=== PATIENT | female | born 1975 | race American Indian/Alaskan Native ===

== ENCOUNTER 2016-12-09 08:30 | Outpatient (CLI) | payer MEDICAID ==
--- NOTE | 2016-12-09 09:03 | Ultrasound Report ---
Right breast ultrasound: History: Chronic nonbloody discharge from the right nipple. On breast imaging demonstrates 3 well-defined anechoic nodules in the 36 and 9:00 locations all measuring under 1 cm. The findings are not otherwise remarkable. Specifically, there is no ductal dilatation or intraductal lesion identified. Impression: 3 benign cysts. Recommendation: Clinical followup. BI-RADS CATEGORY: 2 = Benign ACR BI-RADS MAMMOGRAPHIC CODES: 0 = Needs additional imaging evaluation; 1 = Negative; 2 = Benign; 3 = Probably benign; 4 = Suspicious; 5 = Malignant; 6 = Known biopsy-proven malignancy COMMENT: 1. Dense breast tissue, i.e., adenosis, fibrocystic changes, etc., may obscure an underlying neoplasm. 2. Approximately 10% of cancers are not detected with mammography. 3. A negative mammography report should not delay biopsy if a clinically suspicious mass is present.
== END 2016-12-09 08:31 | disposition home or self-care (01) ==
LOC: SPVWC 08:30
PROVIDERS: ATTEND Surgery
DX: N64.52 Nipple discharge (principal)

== ENCOUNTER 2017-05-28 16:57 | Emergency (ER) | payer MEDICAID ==
[2017-05-28 17:50] LABS: Basophils % (Auto) 0.6 % (0.0-1.8); Eosinophils % (Auto) 1.5 % (0.0-4.3); Hematocrit 43.6 % (30.3-42.9); Hemoglobin 14.1 gm/dl (10.1-14.3); Mean Corpuscular HGB Conc 32 % (30-34); Mean Corpuscular Hemoglobin 26 pg (28-32); Mean Corpuscular Volume 81 fl (79-97); Platelet Count 292 K/mm3 (140-440); Red Blood Count 5.36 M/mm3 (3.65-5.03); Red Cell Distribution Width 15.1 % (13.2-15.2); White Blood Count 8.5 K/mm3 (4.5-11.0)
[2017-05-28 17:52] LABS: Anion Gap 18 mmol/L; BUN/Creatinine Ratio 14.28; Blood Urea Nitrogen 10 mg/dL (7-17); Calcium 9.2 mg/dL (8.4-10.2); Carbon Dioxide 23 mmol/L (22-30); Chloride 96.1 mmol/L (98-107); Glucose 412 mg/dL (65-100); Potassium 4.3 mmol/L (3.6-5.0); Sodium 133 mmol/L (137-145)
[2017-05-28 18:15] LABS: Bilirubin,Urine NEG (Negative); Blood,Urine NEG (Negative); Ketones,Urine TR mg/dL (Negative); Leukocyte Esterase,Urine NEG (Negative); Mucus,Urine FEW /HPF; Nitrite,Urine NEG (Negative); Protein,Urine <15 mg/dL mg/dL (Negative); Urobilinogen,Urine < 2.0 mg/dL (<2.0); WBC,Urine < 1.0 /HPF (0.0-6.0)
[2017-05-28 21:36] VITALS: BP 160/78
--- NOTE | 2017-05-29 10:44 | ED Elopement Review ---
ED Pt Elopement review - Results review Lab results: Laboratory Tests 05/28/17 05/28/17 05/28/17 17:08 17:27 17:27 WBC 8.5 RBC 5.36 H Hgb 14.1 Hct 43.6 H MCV 81 MCH 26 L MCHC 32 RDW 15.1 Plt Count 292 Lymph % (Auto) 37.7 H [place] % (Auto) 7.8 H Eos % (Auto) 1.5 Baso % (Auto) 0.6 Lymph # 3.2 [place] # 0.7 Eos # 0.1 Baso # 0.0 Seg Neutrophils % 52.4 Seg Neutrophils # 4.4 VBG pH Sodium 133 L Potassium 4.3 Chloride 96.1 L Carbon Dioxide 23 Anion Gap 18 BUN 10 Creatinine 0.7 Estimated GFR > 60 BUN/Creatinine Ratio 14.28 Glucose 412 H POC Glucose 402 H Calcium 9.2 HCG, Qual Urine Color Urine Turbidity Urine pH Ur Specific [place] Urine Protein Urine Glucose (UA) Urine Ketones Urine Blood Urine Nitrite Urine Bilirubin Urine Urobilinogen Ur Leukocyte Esterase Urine WBC (Auto) Urine RBC (Auto) U Epithel Cells (Auto) Urine Mucus 05/28/17 05/28/17 05/28/17 17:27 17:27 17:44 WBC RBC Hgb Hct MCV MCH MCHC RDW Plt Count Lymph % (Auto) [place] % (Auto) Eos % (Auto) Baso % (Auto) Lymph # [place] # Eos # Baso # Seg Neutrophils % Seg Neutrophils # VBG pH 7.349 Sodium Potassium Chloride Carbon Dioxide Anion Gap BUN Creatinine Estimated GFR BUN/Creatinine Ratio Glucose POC Glucose Calcium HCG, Qual Negative Urine Color Straw Urine Turbidity Clear Urine pH 6.0 Ur Specific [place] 1.035 H Urine Protein <15 mg/dl Urine Glucose (UA) >=500 Urine Ketones Tr Urine Blood Neg Urine Nitrite Neg Urine Bilirubin Neg Urine Urobilinogen < 2.0 Ur Leukocyte Esterase Neg Urine WBC (Auto) < 1.0 Urine RBC (Auto) 2.0 U Epithel Cells (Auto) 2.0 Urine Mucus Few 05/28/17 21:24 WBC RBC Hgb Hct MCV MCH MCHC RDW Plt Count Lymph % (Auto) [place] % (Auto) Eos % (Auto) Baso % (Auto) Lymph # [place] # Eos # Baso # Seg Neutrophils % Seg Neutrophils # VBG pH Sodium Potassium Chloride Carbon Dioxide Anion Gap BUN Creatinine Estimated GFR BUN/Creatinine Ratio Glucose POC Glucose 293 H Calcium HCG, Qual Urine Color Urine Turbidity Urine pH Ur Specific [place] Urine Protein Urine Glucose (UA) Urine Ketones Urine Blood Urine Nitrite Urine Bilirubin Urine Urobilinogen Ur Leukocyte Esterase Urine WBC (Auto) Urine RBC (Auto) U Epithel Cells (Auto) Urine Mucus - Call Back decision Pt Call Back Decision: Pt to F/U with PMD (multiple medical issues)
== END 2017-05-28 21:46 | disposition left against medical advice (07) ==
LOC: ED 16:57
DX: J02.9 Acute pharyngitis, unspecified (principal); M79.1 Myalgia; E11.65 Type 2 diabetes mellitus with hyperglycemia; M19.90 Unspecified osteoarthritis, unspecified site; J45.909 Unspecified asthma, uncomplicated; K21.9 Gastro-esophageal reflux disease without esophagitis; I10 Essential (primary) hypertension; F32.9 Major depressive disorder, single episode, unspecified; F17.200 Nicotine dependence, unspecified, uncomplicated; Z88.6 Allergy status to analgesic agent; Z88.8 Allergy status to other drugs, medicaments and biological substances; Z88.5 Allergy status to narcotic agent; Z53.21 Procedure and treatment not carried out due to patient leaving prior to being seen by health care provider
CPT/HCPCS: 36415; 80048; 81001; 82805; 82962; 84703; 85025; 87116; 87430

== ENCOUNTER 2017-07-22 00:21 | Emergency (ER) | payer MEDICAID ==
[2017-07-22 02:54] LABS: Anion Gap 20 mmol/L; BUN/Creatinine Ratio 18.33; Basophils % (Auto) 0.3 % (0.0-1.8); Blood Urea Nitrogen 11 mg/dL (7-17); Calcium 9.5 mg/dL (8.4-10.2); Carbon Dioxide 24 mmol/L (22-30); Chloride 95.9 mmol/L (98-107); Eosinophils % (Auto) 1.4 % (0.0-4.3); Glucose 292 mg/dL (65-100); Hematocrit 40.1 % (30.3-42.9); Hemoglobin 13.5 gm/dl (10.1-14.3); Mean Corpuscular HGB Conc 34 % (30-34); Mean Corpuscular Hemoglobin 27 pg (28-32); Mean Corpuscular Volume 80 fl (79-97); Platelet Count 302 K/mm3 (140-440); Potassium 4.2 mmol/L (3.6-5.0); Red Blood Count 5.04 M/mm3 (3.65-5.03); Red Cell Distribution Width 14.6 % (13.2-15.2); Sodium 136 mmol/L (137-145); White Blood Count 7.8 K/mm3 (4.5-11.0)
[2017-07-22] MEDS ORDERED: CLEOCIN 600 MG/50 mL 600 MG/50 ML BAG IV ONE (06:49)
[2017-07-22] MEDS ORDERED: DILAUDID IV ONE ×2 (06:49→11:38)
[2017-07-22] MEDS ORDERED: ZOFRAN IV ONE (06:49)
[2017-07-22] MEDS ORDERED: NACL 0.9% 1000 ML 1,000 ML IV ONE (06:51)
--- NOTE | 2017-07-22 07:09 | Emergency Department Report ---
ED Chest Pain HPI - General Chief Complaint: Chest Pain Stated Complaint: CHEST/LEG PAIN Time Seen by Provider: 07/22/17 06:18 Source: patient Mode of arrival: Ambulatory Limitations: No Limitations - History of Present Illness Initial Comments: 41-year-old female with past medical history of arthritis, diabetes, asthma, GERD, hypertension, elevated cholesterol, and depression presents to the hospital complaining of chest pain and abscess. The patient has had intermittent right upper chest pain 3 days. Pain is sharp, intermittent, moderate in intensity. Worse with deep inspiration and movement but not palpation. Positive associated increased dyspnea on exertion. Denies nausea, vomiting, diaphoresis, calf tenderness, edema, recent travel, history of PE/ DVT. Patient quit smoking 2 weeks ago. No previous history of stress te or drug use. Patient also complains of boil 1 week. Gradually increasing in size to the back of the left medial thigh. Positive redness. No drainage Severity scale (0 -10): 7 - Related Data Home Medications Medication Instructions Recorded Confirmed Last Taken Ergocalciferol [Vitamin D2] 1 cap PO QWEEK 07/22/17 07/22/17 Unknown Hydroxyzine HCl 25 mg PO Q8H PRN 07/22/17 07/22/17 Unknown Insulin Glargine [Lantus] 60 units SQ QHS 07/22/17 07/22/17 Unknown Insulin Lispro [HumaLOG VIAL] 40 units SQ AC 07/22/17 07/22/17 Unknown Losartan [Cozaar] 100 mg PO QDAY 07/22/17 07/22/17 Unknown Pregabalin [Lyrica] 75 mg PO BID 07/22/17 07/22/17 Unknown amLODIPine [Norvasc] 5 mg PO DAILY 07/22/17 07/22/17 Unknown Previous Rx's Medication Instructions Recorded Last Taken Type HYDROcodone/APAP 5-325 [[place] 1 each PO Q4HR PRN #20 tablet 07/22/17 Unknown Rx 5/325] Sulfamethoxazole/Trimethoprim 1 each PO BID #20 tablet 07/22/17 Unknown Rx [Bactrim DS TAB] Allergies Allergy/AdvReac Type Severity Reaction Status Date / Time No Known Allergies Allergy Verified 07/22/17 07:48 Heart Score - HEART Score History: Slightly suspicious EKG: Non-specific Age: < 45 Risk factors: > 3 risk factors or hx of atherosclerotic disease Troponin: < normal limit HEART Score: 3 ED Review of Systems ROS: Stated complaint: CHEST/LEG PAIN Other details as noted in HPI Comment: All other systems reviewed and negative Other: Constitutional: No fevers chills Eyes: No eye pain visual changes ENT: No ear pain or throat pain Neck: Denies pain Respiratory: Denies cough wheezing Cardiovascular: Denies palpitations, syncope GI: Denies abdominal pain, nausea, vomiting, diarrhea : Denies dysuria, urinary frequency, or urgency Musculoskeletal: Denies back pain Skin: As per HPI Neurologic: Denies headache, numbness, weakness Psychiatric: Denies suicidal ideation, hallucinations ED Past Medical Hx - Past Medical History Hx Hypertension: Yes Hx Diabetes: Yes Hx GERD: Yes Hx Arthritis: Yes Hx Kidney Stones: Yes Hx Psychiatric Treatment: Yes (DEPRESSION) Hx Asthma: Yes Additional medical history: HIGH CHOLESTEROL - Surgical History Past Surgical History?: No - Social History Smoking Status: Never Smoker Substance Use Type: None - Medications Home Medications: Home Medications Medication Instructions Recorded Confirmed Last Taken Type Ergocalciferol [Vitamin D2] 1 cap PO QWEEK 07/22/17 07/22/17 Unknown History HYDROcodone/APAP 5-325 [[place] 1 each PO Q4HR PRN #20 tablet 07/22/17 Unknown Rx 5/325] Hydroxyzine HCl 25 mg PO Q8H PRN 07/22/17 07/22/17 Unknown History Insulin Glargine [Lantus] 60 units SQ QHS 07/22/17 07/22/17 Unknown History Insulin Lispro [HumaLOG VIAL] 40 units SQ AC 07/22/17 07/22/17 Unknown History Losartan [Cozaar] 100 mg PO QDAY 07/22/17 07/22/17 Unknown History Pregabalin [Lyrica] 75 mg PO BID 07/22/17 07/22/17 Unknown History Sulfamethoxazole/Trimethoprim 1 each PO BID #20 tablet 07/22/17 Unknown Rx [Bactrim DS TAB] amLODIPine [Norvasc] 5 mg PO DAILY 07/22/17 07/22/17 Unknown History ED Physical Exam - General Limitations: No Limitations - Other Other exam information: General: No limitations, patient is alert in no acute distress Head exam: Atraumatic, normocephalic Eyes exam: Normal appearance ENT: Moist mucous membrane, normal oropharynx Neck exam: Normal inspection, full range of motion, no meningismus nontender Respiratory exam: Clear to auscultation bilateral, no wheezes, rales, crackles. Chest: Nontender Cardiovascular: Normal rate and rhythm, normal heart sounds Abdomen: Soft, nondistended, and nontender, with normal bowel sounds, no rebound, or guarding Extremity: Full range of motion normal inspection no deformity Back: Normal Inspection, full range of motion, no tenderness Neurologic: Alert, oriented x3, cranial nerves intact, no motor or sensory deficit Psychiatric: normal affect, normal mood Skin: Left and a thigh large abscess with warmth, erythema, and fluctuance ED Course Vital Signs 07/22/17 07/22/17 07/22/17 01:49 04:47 06:13 Temperature 97.6 F 98.6 F Pulse Rate 82 80 76 Respiratory 18 11 L Rate Blood Pressure 169/100 166/116 Blood Pressure [Left] O2 Sat by Pulse 98 98 98 Oximetry 07/22/17 07/22/17 07/22/17 06:15 06:30 06:45 Temperature Pulse Rate 90 79 76 Respiratory 16 19 22 Rate Blood Pressure 148/84 139/76 139/76 Blood Pressure 148/84 [Left] O2 Sat by Pulse 98 100 98 Oximetry 07/22/17 07/22/17 07/22/17 07:00 07:15 07:30 Temperature Pulse Rate 78 83 79 Respiratory 19 11 L 17 Rate Blood Pressure 144/72 158/88 166/79 Blood Pressure [Left] O2 Sat by Pulse 97 97 96 Oximetry 07/22/17 07/22/17 07/22/17 07:45 08:00 08:15 Temperature 98.5 F Pulse Rate 88 78 Respiratory 26 H 19 14 Rate Blood Pressure 166/79 183/78 183/78 Blood Pressure [Left] O2 Sat by Pulse 97 95 97 Oximetry 07/22/17 07/22/17 07/22/17 08:31 08:45 09:00 Temperature Pulse Rate Respiratory 18 16 Rate Blood Pressure 183/78 183/78 150/79 Blood Pressure [Left] O2 Sat by Pulse 97 95 96 Oximetry 07/22/17 07/22/17 07/22/17 09:15 10:20 10:52 Temperature 97.9 F Pulse Rate 79 Respiratory 16 18 18 Rate Blood Pressure 183/78 Blood Pressure 137/76 [Left] O2 Sat by Pulse 100 Oximetry - I & D Right Thigh Type of Procedure: Simple Blade Size: 11 I & D Procedure: betadine prep, sterile drapes applied, sterile dressing applied , gauze wick placed AUTUMN score - Autumn Score Age > 65: (0) No Aspirin use within the Past 7 Days: (0) No 3 or more CAD Risk Factors: (1) Yes 2 or more Angina events in past 24 hrs: (0) No Known CAD with more than 50% Stenosis: (0) No Elevated Cardiac Markers: (0) No ST Deviation Greater than 0.5mm: (0) No AUTUMN Score: 1 ED Medical Decision Making - Lab Data Result diagrams: 07/22/17 02:01 07/22/17 02:01 Lab Results 07/22/17 07/22/17 07/22/17 Range/Units 02:01 02:01 04:52 WBC 7.8 (4.5-11.0) K/mm3 RBC 5.04 H (3.65-5.03) M/mm3 Hgb 13.5 (10.1-14.3) gm/dl Hct 40.1 (30.3-42.9) % MCV 80 (79-97) fl MCH 27 L (28-32) pg MCHC 34 (30-34) % RDW 14.6 (13.2-15.2) % Plt Count 302 (140-440) K/mm3 Lymph % (Auto) 49.9 H (13.4-35.0) % [place] % (Auto) 8.2 H (0.0-7.3) % Eos % (Auto) 1.4 (0.0-4.3) % Baso % (Auto) 0.3 (0.0-1.8) % Lymph # 3.9 (1.2-5.4) K/mm3 [place] # 0.6 (0.0-0.8) K/mm3 Eos # 0.1 (0.0-0.4) K/mm3 Baso # 0.0 (0.0-0.1) K/mm3 Seg Neutrophils % 40.2 (40.0-70.0) % Seg Neutrophils # 3.1 (1.8-7.7) K/mm3 D-Dimer (0-234) ng/mlDDU Sodium 136 L (137-145) mmol/L Potassium 4.2 (3.6-5.0) mmol/L Chloride 95.9 L (98-107) mmol/L Carbon Dioxide 24 (22-30) mmol/L Anion Gap 20 mmol/L BUN 11 (7-17) mg/dL Creatinine 0.6 L (0.7-1.2) mg/dL Estimated GFR > 60 ml/min BUN/Creatinine Ratio 18.33 % Glucose 292 H (65-100) mg/dL POC Glucose (70-105) Calcium 9.5 (8.4-10.2) mg/dL Troponin T < 0.010 < 0.010 (0.00-0.029) ng/mL HCG, Qual (Negative) 07/22/17 07/22/17 07/22/17 Range/Units 07:18 07:18 07:18 WBC (4.5-11.0) K/mm3 RBC (3.65-5.03) M/mm3 Hgb (10.1-14.3) gm/dl Hct (30.3-42.9) % MCV (79-97) fl MCH (28-32) pg MCHC (30-34) % RDW (13.2-15.2) % Plt Count (140-440) K/mm3 Lymph % (Auto) (13.4-35.0) % [place] % (Auto) (0.0-7.3) % Eos % (Auto) (0.0-4.3) % Baso % (Auto) (0.0-1.8) % Lymph # (1.2-5.4) K/mm3 [place] # (0.0-0.8) K/mm3 Eos # (0.0-0.4) K/mm3 Baso # (0.0-0.1) K/mm3 Seg Neutrophils % (40.0-70.0) % Seg Neutrophils # (1.8-7.7) K/mm3 D-Dimer 205.02 (0-234) ng/mlDDU Sodium (137-145) mmol/L Potassium (3.6-5.0) mmol/L Chloride (98-107) mmol/L Carbon Dioxide (22-30) mmol/L Anion Gap mmol/L BUN (7-17) mg/dL Creatinine (0.7-1.2) mg/dL Estimated GFR ml/min BUN/Creatinine Ratio % Glucose (65-100) mg/dL POC Glucose (70-105) Calcium (8.4-10.2) mg/dL Troponin T < 0.010 (0.00-0.029) ng/mL HCG, Qual Negative (Negative) 07/22/17 07/22/17 Range/Units 07:52 11:27 WBC (4.5-11.0) K/mm3 RBC (3.65-5.03) M/mm3 Hgb (10.1-14.3) gm/dl Hct (30.3-42.9) % MCV (79-97) fl MCH (28-32) pg MCHC (30-34) % RDW (13.2-15.2) % Plt Count (140-440) K/mm3 Lymph % (Auto) (13.4-35.0) % [place] % (Auto) (0.0-7.3) % Eos % (Auto) (0.0-4.3) % Baso % (Auto) (0.0-1.8) % Lymph # (1.2-5.4) K/mm3 [place] # (0.0-0.8) K/mm3 Eos # (0.0-0.4) K/mm3 Baso # (0.0-0.1) K/mm3 Seg Neutrophils % (40.0-70.0) % Seg Neutrophils # (1.8-7.7) K/mm3 D-Dimer (0-234) ng/mlDDU Sodium (137-145) mmol/L Potassium (3.6-5.0) mmol/L Chloride (98-107) mmol/L Carbon Dioxide (22-30) mmol/L Anion Gap mmol/L BUN (7-17) mg/dL Creatinine (0.7-1.2) mg/dL Estimated GFR ml/min BUN/Creatinine Ratio % Glucose (65-100) mg/dL POC Glucose 307 H 262 H (70-105) Calcium (8.4-10.2) mg/dL Troponin T (0.00-0.029) ng/mL HCG, Qual (Negative) - EKG Data -: EKG Interpreted by Me (sinus rate [address] elevation [place]) - EKG Data 07/22/17 07:11 Repeat EKG:sinus rate 73 LVH and nonspecific T-wave abnormality - Radiology Data Radiology results: report reviewed (cxr: naf), image reviewed - Medical Decision Making Plan discharge patient home with pain medication and antibiotics for MRSA. This patient is a typical unremarkable EKG, cardiac enzymes 3, chest x-ray, and d-dimer. Follow-up will be encouraged - Differential Diagnosis atypical chest pain, PE, pleurisy, costochondritis, abscess, [place] Critical Care Time: No Critical care attestation.: If time is entered above; I have spent that time in minutes in the direct care of this critically ill patient, excluding procedure time. ED Disposition Clinical Impression: Atypical chest pain, Diabetes, Abscess of left thigh Disposition: TO HOME OR SELFCARE Is pt being admited?: No Does the pt Need Aspirin: No Condition: Stable Instructions: Chest Pain (ED), Diabetes Mellitus Type 2 in Adults (ED), Abscess (ED) Additional Instructions: Take the medication as prescribed. Please note urinary infection may cause her glucose to be more elevated than normal. Please continue to monitor and treat her glucose level closely. Please return if symptoms worsen as indicated by her discharge instructions. It is very important that your are reevaluated within 2 days for packing removal and abscess reevaluation. You may go to your primary care doctor or return here to the emergency department Prescriptions: HYDROcodone/APAP 5-325 [[place] 5/325] 1 each PO Q4HR PRN #20 tablet PRN Reason: Pain Sulfamethoxazole/Trimethoprim [Bactrim DS TAB] 1 each PO BID #20 tablet Referrals: AARTI SERVIN MD [Primary Care Provider] - 2-3 Days Time of Disposition: 11:46
[2017-07-22] MEDS ORDERED: XYLOCAINE 1% 20 mL ONE (07:48)
--- NOTE | 2017-07-22 08:41 | XRay Report ---
FINAL REPORT EXAM: XR CHEST 1V AP HISTORY: Chest pain TECHNIQUE: AP portable view(s) of the chest obtained. PRIORS: None. FINDINGS: No mediastinal shift. Cardiac silhouette is not enlarged. No pneumothorax, effusion, or focal pulmonary opacity identified. No acute skeletal findings. IMPRESSION: No acute pulmonary finding identified.
[2017-07-22] MEDS ORDERED: XYLOCAINE 1%/ EPI 1:100,000 INFILTRATI ONE (09:06)
[2017-07-22] MEDS ORDERED: XYLOCAINE 1%/ EPI 1:100,000 INFILTRATI NR (10:00)
[2017-07-22 13:29] VITALS: BP 165/78
== END 2017-07-22 13:25 | disposition home or self-care (01) ==
LOC: ED 00:21
DX: R07.89 Other chest pain (principal); L02.416 Cutaneous abscess of left lower limb; I10 Essential (primary) hypertension; E11.9 Type 2 diabetes mellitus without complications; M19.90 Unspecified osteoarthritis, unspecified site; F32.9 Major depressive disorder, single episode, unspecified; J45.909 Unspecified asthma, uncomplicated; E78.00 Pure hypercholesterolemia, unspecified; Z79.4 Long term (current) use of insulin
CPT/HCPCS: 10060; 36415; 71010; 80048; 82962; 84484; 84703; 85025; 85379; 87116; 93005; 93010; 96365; 96375; 96376; 99285; J1170; J2405; J7030; 87076; 87186; J1815

== ENCOUNTER 2017-07-24 15:10 | Emergency (ER) | payer MEDICAID ==
[2017-07-24 15:17] VITALS: BP 181/104
--- NOTE | 2017-07-24 15:17 | Emergency Department Report ---
Stated Complaint: PACKING REMOVED Time Seen by Provider: 07/24/17 15:14 - HPI History of Present Illness: PT states she is here for recheck. PT states she was seen on Monday and had abscess drained. PT states some of the dressing fell off. PT rates her pain - ROS Review of Systems: - fever - chills - Exam Physical Exam: obese female no acute distress upper thigh not visualized in triage MSE screening note: Focused history and physical exam performed. Due to findings the following was ordered: room for exam ED Disposition for MSE Condition: Stable
--- NOTE | 2017-07-24 18:47 | Emergency Department Report ---
Entered by MINISTERIO LUJAN, acting as scribe for ALISA LEON NP. ED Recheck HPI - General Chief Complaint: Laceration/Recheck/Suture Stated Complaint: PACKING REMOVED Time Seen by Provider: 07/24/17 15:14 Source: patient Mode of arrival: Ambulatory Limitations: No Limitations - History of Present Illness Initial Comments: This is a 41 y/o female, nontoxic, well nourished in appearance, no acute signs of distress with a PMHx of asthma, IDDM, GERD, HTN, renal stones, depression, and high cholesterol presents with an abscess recheck that began 2 days ago. Patient was seen in this ED on 07/22/2017 to have an abscess incised and drained. Rates pain a 7/10 in severity, which she describes as aching in quality. Aggravated with palpation and alleviated with nothing. Denies increase in pain, drainage, fever, chills, chest pain, SOB, [place] or dizziness, numbness, and tingling. Notes compliancy to prescribed antibiotics, Bactrim. NKDA. OLIVA Complaint: wound re-check Onset/Timin -: days(s) Initial Visit For: abscess Returns Today for: wound recheck Symptoms Since Prior Visit: no new symptoms Context: planned re-check Associated Symptoms: none. denies: fever, chills, chest pain, shortness of breath, rash, malaise, [place], abdominal pain Treatments Prior to Arrival: dressings, Given Antibiotics on (Bactrim), Given Pain Meds on ([place]) - Related Data Home Medications Medication Instructions Recorded Confirmed Last Taken Ergocalciferol [Vitamin D2] 1 cap PO QWEEK 07/22/17 07/22/17 Unknown Hydroxyzine HCl 25 mg PO Q8H PRN 07/22/17 07/22/17 Unknown Insulin Glargine [Lantus] 60 units SQ QHS 07/22/17 07/22/17 Unknown Insulin Lispro [HumaLOG VIAL] 40 units SQ AC 07/22/17 07/22/17 Unknown Losartan [Cozaar] 100 mg PO QDAY 07/22/17 07/22/17 Unknown Pregabalin [Lyrica] 75 mg PO BID 07/22/17 07/22/17 Unknown amLODIPine [Norvasc] 5 mg PO DAILY 07/22/17 07/22/17 Unknown Previous Rx's Medication Instructions Recorded Last Taken Type HYDROcodone/APAP 5-325 [[place] 1 each PO Q4HR PRN #20 tablet 07/22/17 Unknown Rx 5/325] Sulfamethoxazole/Trimethoprim 1 each PO BID #20 tablet 07/22/17 Unknown Rx [Bactrim DS TAB] Allergies Allergy/AdvReac Type Severity Reaction Status Date / Time No Known Allergies Allergy Verified 07/22/17 07:48 ED Review of Systems Comment: All other systems reviewed and negative Constitutional: denies: chills, fever Eyes: denies: eye pain, eye discharge, vision change ENT: denies: ear pain, throat pain Respiratory: denies: cough, orthopnea, shortness of breath, SOB with exertion, SOB at rest, stridor, wheezing Cardiovascular: denies: chest pain, palpitations, dyspnea on exertion, orthopnea , edema, syncope, paroxysmal nocturnal dyspnea Endocrine: no symptoms reported Gastrointestinal: denies: abdominal pain, nausea, vomiting, diarrhea Genitourinary: denies: urgency, dysuria, discharge Musculoskeletal: denies: back pain, joint swelling, arthralgia Skin: other (well healing abscess to right posterior thigh). denies: rash, lesions Neurological: denies: headache, weakness, paresthesias Psychiatric: denies: anxiety, depression Hematological/Lymphatic: denies: easy bleeding, easy bruising ED Past Medical Hx - Past Medical History Previous Medical History?: Yes Hx Hypertension: Yes Hx Diabetes: Yes Hx GERD: Yes Hx Arthritis: Yes Hx Kidney Stones: Yes Hx Psychiatric Treatment: Yes (DEPRESSION) Hx Asthma: Yes Additional medical history: HIGH CHOLESTEROL - Surgical History Past Surgical History?: No - Family History Family history: no significant - Social History Smoking Status: Never Smoker Substance Use Type: None - Medications Home Medications: Home Medications Medication Instructions Recorded Confirmed Last Taken Type Ergocalciferol [Vitamin D2] 1 cap PO QWEEK 07/22/17 07/22/17 Unknown History HYDROcodone/APAP 5-325 [[place] 1 each PO Q4HR PRN #20 tablet 07/22/17 Unknown Rx 5/325] Hydroxyzine HCl 25 mg PO Q8H PRN 07/22/17 07/22/17 Unknown History Insulin Glargine [Lantus] 60 units SQ QHS 07/22/17 07/22/17 Unknown History Insulin Lispro [HumaLOG VIAL] 40 units SQ AC 07/22/17 07/22/17 Unknown History Losartan [Cozaar] 100 mg PO QDAY 07/22/17 07/22/17 Unknown History Pregabalin [Lyrica] 75 mg PO BID 07/22/17 07/22/17 Unknown History Sulfamethoxazole/Trimethoprim 1 each PO BID #20 tablet 07/22/17 Unknown Rx [Bactrim DS TAB] amLODIPine [Norvasc] 5 mg PO DAILY 07/22/17 07/22/17 Unknown History ED Physical Exam - General Limitations: No Limitations General appearance: alert, in no apparent distress - Head Head exam: Present: atraumatic, normocephalic - Eye Eye exam: Present: normal appearance, PERRL, EOMI. Absent: scleral icterus, conjunctival injection, nystagmus, periorbital swelling, periorbital tenderness Pupils: Present: normal accommodation - ENT ENT exam: Present: normal exam, normal orophraynx, mucous membranes moist, TM's normal bilaterally, normal external ear exam - Neck Neck exam: Present: normal inspection, full ROM. Absent: tenderness, meningismus, lymphadenopathy, thyromegaly - Respiratory Respiratory exam: Present: normal lung sounds bilaterally. Absent: respiratory distress, wheezes, rales, rhonchi, stridor - Cardiovascular Cardiovascular Exam: Present: regular rate, normal rhythm, normal heart sounds. Absent: systolic murmur, diastolic murmur, rubs, gallop - GI/Abdominal GI/Abdominal exam: Present: soft, normal bowel sounds. Absent: distended, tenderness, guarding, rebound, rigid, diminished bowel sounds - Rectal Rectal exam: Present: deferred - Extremities Exam Extremities exam: Present: normal inspection, full ROM, normal capillary refill. Absent: tenderness, pedal edema, joint swelling, calf tenderness - Back Exam Back exam: Present: normal inspection, full ROM. Absent: tenderness, CVA tenderness (R), CVA tenderness (L), muscle spasm, paraspinal tenderness, vertebral tenderness, rash noted - Neurological Exam Neurological exam: Present: alert, oriented X3, CN II-XII intact, normal gait, reflexes normal. Absent: motor sensory deficit - Psychiatric Psychiatric exam: Present: normal affect, normal mood - Skin Skin exam: Present: warm, dry, intact, other (well healing open abscess to right posterior thigh with no fluntuance, drainage, induration, or sign of infection noted. No packing seen. Pt stated packing fell out in the restroom 2 days ago.). Absent: rash ED Course Vital Signs 07/24/17 15:14 Temperature 98.5 F Pulse Rate 87 Respiratory 18 Rate Blood Pressure 181/104 O2 Sat by Pulse 98 Oximetry - Reevaluation(s) Reevaluation #1: 07/24/17 18:12 Patient is speaking in full sentences with no signs of distress. ED Disposition Clinical Impression: Encounter for wound re-check Disposition: DC-01 TO HOME OR SELFCARE Is pt being admited?: No Does the pt Need Aspirin: No Condition: Stable Instructions: Acute Wound Care (ED) Additional Instructions: Follow-up with a primary care doctor in 3-5 days or symptoms such as increased swelling, or pus or drainage or any other abnormal symptoms return to emergency room as soon as possible. Continue taking her antibiotics that was prescribed to prior to this visit. Referrals: PRIMARY CAREMD [Primary Care Provider] - 3-5 Days [place] DEAN MD [Staff Physician] - 3-5 Days [facility] [Outside] - 3-5 Days [facility] [Outside] - 3-5 Days Forms: Work/School Release Form(ED) This documentation as recorded by the TAI salter JASMINE,accurately reflects the service I personally performed and the decisions made by me,ALISA LEON, EMMANUEL.
== END 2017-07-24 18:59 | disposition home or self-care (01) ==
LOC: ED 15:10
DX: Z48.00 Encounter for change or removal of nonsurgical wound dressing (principal); I10 Essential (primary) hypertension; E11.9 Type 2 diabetes mellitus without complications; K21.9 Gastro-esophageal reflux disease without esophagitis; M19.90 Unspecified osteoarthritis, unspecified site; F32.9 Major depressive disorder, single episode, unspecified; J45.909 Unspecified asthma, uncomplicated; E78.00 Pure hypercholesterolemia, unspecified; Z79.4 Long term (current) use of insulin
CPT/HCPCS: 99282